=== PATIENT | female | born 1965 | race African-American/Black ===

== ENCOUNTER 2022-03-02 08:24 | Emergency (ER) | payer MEDICAID, SELFPAY ==
--- NOTE | ~2022-03-02 | CT_ITS ---
EXAMINATION: CT ABDOMEN AND PELVIS WITHOUT CONTRAST CLINICAL INFORMATION: Right flank pain COMPARISON: No previous exam available TECHNIQUE: Multidetector volumetric imaging was performed from the superior aspect of the liver through the pubic symphysis. Sagittal and coronal reformatted images were obtained on the technologist's workstation. This CT examination was performed using dose optimization techniques as appropriate, variously including the following: *Automated exposure control *Adjustment of mA and/or kV according to patient size (this includes techniques or standardized protocols for targeted exams where dose is matched to indication/reason for exam; i.e. extremities or head) *Use of iterative reconstruction technique DLP: 649 mGy-cm FINDINGS: LUNG BASES: There is bibasilar atelectasis. LIVER, GALLBLADDER, AND BILIARY TREE: The liver is normal in size, shape, and attenuation. No focal hepatic lesion or biliary ductal dilatation is present. There is a focal calcification along the right hepatic dome. There are multiple radiopaque gallstones without wall thickening. PANCREAS: Unremarkable. SPLEEN: Unremarkable. ADRENAL GLANDS: Unremarkable. KIDNEYS AND URETERS: The kidneys are normal in size, shape, and attenuation. No hydronephrosis, hydroureter, or calculi seen. No perinephric stranding. BLADDER: Unremarkable. GASTROINTESTINAL TRACT: There is scattered stool and gas seen throughout the colon without distention. The small bowel loops are normal caliber. Appendix is not visualized. The stomach is nondistended ABDOMINAL WALL: No significant hernia is appreciated. LYMPH NODES: Normal. VASCULAR: Unremarkable. PELVIC VISCERA: The uterus is anteverted and appears unremarkable. No free fluid or free air seen. No adnexal mass. OSSEOUS STRUCTURES: No lytic or sclerotic process seen. There is mild degenerative facet joint disease L5-S1 disc level. CT/CT abdomen pelvis wo IV con IMPRESSION: 1. Cholelithiasis without wall thickening. There is small stone in the neck of bladder but no wall thickening. 2. Mild constipation. 3. No radiopaque urolith or hydroureteronephrosis. Fleischner guidelines were followed.
[2022-03-02 08:26] VITALS: BP 153/90; PULSE 75; RESP 18; TEMP 36.7; O2SAT 100; BMI 25.1
[2022-03-02 08:47] VITALS: BP 139/87; PULSE 63; RESP 15; O2SAT 99
--- NOTE | 2022-03-02 09:05 | ED.GENADULT ---
HPI - General Adult General Chief complaint: General Medical Stated complaint: back pain Time Seen by Provider: 03/02/22 09:04 Source: patient Mode of arrival: ambulatory Limitations: no limitations History of Present Illness HPI narrative: 56-year-old female with a history of hypertension noncompliant with her medication who presents with right flank pain for the last 3 days intermittent more severe today with urinary frequency. No dysuria, hematuria, nausea, vomiting, fevers. No injury or trauma Related Data Allergies Allergy/AdvReac Type Severity Reaction Status Date / Time No Known Allergies Allergy Verified 03/02/22 09:12 Review of Systems Review of Systems: Yes all other systems are reviewed and are negative Constitutional: Constitutional: Reports no additional constitutional complaints, Denies body ache(s), Denies chills, Denies fever(s), Denies headache(s) and Denies weakness Eyes: Eyes: Reports no additional eye complaints and Denies change in vision ENT: Reports system reviewed and no additional complaints, except as documented, Denies dizziness, Denies headache(s), Denies nasal congestion, Denies nasal discharge and Denies neck pain Cardiovascular: Cardiovascular: Reports no additional cardiovascular complaints, Denies chest pain, Denies leg edema and Denies dyspnea Respiratory: Respiratory: Reports no additional respiratory complaints, Denies cough and Denies dyspnea Gastrointestinal: Gastrointestinal: Reports no additional gastrointestinal complaints, Denies abdominal pain, Denies diarrhea, Denies nausea and Denies vomiting Genitourinary: Genitourinary: Reports no additional female genitourinary complaints and Denies urinary incontinence Musculoskeletal: Musculoskeletal: Reports no additional musculoskeletal complaints, Reports back pain, Denies arthralgias, Denies joint swelling, Denies neck pain, Denies numbness and Denies tingling Integumentary/Breasts: Skin/Breast: Reports system reviewed and no additional complaints, except as docu and Denies rash Neurologic: Reports system reviewed and no additional complaints, except as documented, Denies dizziness, Denies headache(s), Denies numbness, Denies tingling and Denies weakness PMFSH Past Medical History Attestation statement: The following information was validated with the patient. Source: old records reviewed and nursing notes reviewed Social History Social History Use of substances other than those prescribed or required for medical reasons: No Advance Directives: No Physical Exam ED Vital Signs: Vital Signs - 24 hr 03/02/22 08:26 03/02/22 08:47 03/02/22 10:47 Temperature 98.0 F Pulse Rate 75 63 55 Respiratory Rate 18 15 15 Blood Pressure 153/90 H 139/87 147/86 H Pulse Oximetry 100 99 96 Oxygen Delivery Method Room Air Room Air Room Air BMI result Body Mass Index 25.1 Const General: cooperative, healthy appearing, comfortable and no acute distress Orientation/consciousness: patient oriented x3 Limitations: no limitations HENMT Head: Yes normal to inspection Ears: hearing grossly normal bilaterally Eyes General: appearance normal, both eyes and all related structures Pupils: Equal, round and reactive pupils present Neck Neck: Yes normal visual inspection, Yes full ROM and Yes no lymphadenopathy Chest Chest palpation & inspection: normal inspection of the chest Resp Effort & Inspection: normal respiratory effort Auscultation: clear to auscultation bilaterally Cardio Rate: regular rate Rhythm: regular rhythm Peripheral pulses: Peripheral pulses 2+ throughout GI Inspection: Yes normal to inspection Palpation (GI): Soft to palpation and nontender Other: Tenderness to the right soft tissue of the thoracic and lumbar spine with no midline tenderness, step-offs deformities General: Yes CVA tenderness on the right Back/Spine/Pelvis Back: CVA tenderness Thoracic/Lumbar Spine: thoracic and lumbar spine normal to inspection Skin General skin exam: no rashes or lesions noted Neuro General: patient oriented x3 and moves all extremities Cranial nerves: Yes Equal, round and reactive pupils present Cognition (Neuro): normal cognition Gait exam (Neuro): Normal gait present Extrem General: Yes normal to inspection, Yes no pedal edema and Yes no calf tenderness Course Course Course Narrative: CT shows gallstones with a stone in the neck of the gallbladder. Labs including LFTs are normal. Pain is well controlled after receiving Toradol IM. No vomiting. Patient was informed of the results. We recommended following a low-fat diet. She would like to follow-up outpatient with surgery. Reviewed worrisome signs and symptoms of when to return to the emergency room. Comfortable plan for discharge home. Medications Administered Discontinued Medications Generic Name Dose Route Start Last Admin Trade Name Freq PRN Reason Stop Dose Admin Ketorolac Tromethamine 30 mg 03/02/22 09:12 03/02/22 09:58 Ketorolac Tromethamine 30 Mg/Ml Vial IM 03/02/22 09:13 Not Given ONCE ONE Medical Decision Making Medical Decision Making [facility] Narrative: 56-year-old female here with right flank pain and urinary frequency for 3 days With obtain labs, UA, CT, provide analgesia Differential Diagnosis Differential Diagnoses: The differential diagnosis associated with the presentation includes Lumbar strain, renal colic, pyelonephritis, cholecystitis Consult Healthcare Provider Management of the patient was discussed with: [employer] (radiologist-dr leslie) Initial read of CT scan showed gallstones without wall thickening and concern for stone in the neck of the bladder but no wall thickening. I did call and speak to him. I confirmed that he meant there was a small stone in the neck of the gallbladder with no wall thickening Lab Data [facility] Lab Attestation statement: I reviewed the patient's lab results. 03/02/22 09:54 03/02/22 09:54 Labs: Lab Results 03/02/22 03/02/22 03/02/22 Range/Units 09:54 09:54 10:04 WBC 9.7 (4.8-10.8) X10*3/uL RBC 4.05 L (4.20-5.50) X10*6/uL Hgb 12.5 (12.0-16.0) g/dl Hct 38.1 (37.0-47.0) % MCV 94.1 (80.0-98.0) fL MCH 30.9 (27.0-33.0) pg MCHC 32.8 (31.0-35.0) g/dl RDW 14.6 (11.0-16.0) % Plt Count 168 (160-400) X10*3/uL MPV 12.3 (9.4-12.3) fL Immature Gran % (Auto) Cancelled Neut % (Auto) Cancelled Lymph % (Auto) Cancelled Kemper % (Auto) Cancelled Eos % (Auto) Cancelled Baso % (Auto) Cancelled Lymph # (Auto) Cancelled Kemper # (Auto) Cancelled Eos # (Auto) Cancelled Baso # (Auto) Cancelled Abs Immat Gran (auto) Cancelled Absolute Neuts (auto) Cancelled Absolute Nucleated RBC 0.000 (0.0-0.012) X10*3/uL Nucleated RBC % (auto) 0.0 (0.0-0.2) /100WBC Neutrophils % (Manual) 56 (45-73) % Band Neutrophils % 0 L (3-5) % Lymphocytes % (Manual) 33 (20-40) % Monocytes % (Manual) 7 (2-11) % Eosinophils % (Manual) 1 (0-4) % Basophils % (Manual) 3 H (0-2) % Abs Neuts (Manual) 5.4 (2.0-8.3) X10*3/uL Lymphocytes # (Manual) 3.2 (1.2-4.9) X10*3/uL Monocytes # (Manual) 0.7 (0.1-1.2) X10*3/uL Eosinophils # (Manual) 0.1 (0.0-0.4) X10*3/uL Basophils # (Manual) 0.3 H (0.0-0.2) X10*3/uL Platelet Estimate NORMAL (NORMAL) Plt Morphology Comment NORMAL RBC Morphology NORMAL Sodium 139 (135-145) mmol/L Potassium 3.9 (3.3-5.1) mmol/L Chloride 111 H (96-108) mmol/L Carbon Dioxide 22 (22-29) mmol/L Anion Gap 10 L (12-20) BUN 19 H (9-16) mg/dL Creatinine 0.82 (0.5-1.4) mg/dL Estim Creat Clear Calc 80.0 Estimated GFR > 60 Random Glucose 84 (60-115) mg/dL Calcium 8.6 (8.4-10.2) mg/dL Total Bilirubin 0.3 (0.0-1.0) mg/dL Direct Bilirubin < 0.2 (0.0-0.5) mg/dL AST 13 (5-31) U/L ALT 8 (0-31) U/L Alkaline Phosphatase 48 (39-117) U/L Total Protein 6.0 L (6.5-8.0) g/dL Albumin 3.8 (3.5-5.0) g/dL Urine Color Yellow Urine Appearance Clear Urine pH 5.5 (5.0-9.0) Ur Specific Blair 1.015 (1.005-1.025) Urine Protein Negative (Neg-Trace) mg/dL Urine Glucose (UA) Negative (Negative) mg/dL Urine Ketones Negative (Negative) mg/dL Urine Blood Negative (Negative) Urine Nitrite Negative (Negative) Ur Leukocyte Esterase Negative (Negative) Independent Interpretation I performed an independent interpretation of an: CT Scan (Independently reviewed which shows gallstones without wall thickening with a small stone in the neck of the bladder) Radiology Impression Discussion of test interpretation with radiology: I have reviewed the radiologist's reading. Radiologist Impression: FINDINGS: LUNG BASES: There is bibasilar atelectasis.? LIVER, GALLBLADDER, AND BILIARY TREE: The liver is normal in size, shape, and attenuation. No focal hepatic lesion or biliary ductal dilatation is present. There is a focal calcification along the right hepatic dome. There are multiple radiopaque gallstones without wall thickening.? PANCREAS: Unremarkable.? SPLEEN: Unremarkable.? ADRENAL GLANDS: Unremarkable.? KIDNEYS AND URETERS: The kidneys are normal in size, shape, and attenuation. No hydronephrosis, hydroureter, or calculi seen. No perinephric stranding. ? BLADDER: Unremarkable.? GASTROINTESTINAL TRACT: There is scattered stool and gas seen throughout the colon without distention. The small bowel loops are normal caliber. Appendix is not visualized. The stomach is nondistended ABDOMINAL WALL: No significant hernia is appreciated.? LYMPH NODES: Normal. VASCULAR: Unremarkable. PELVIC VISCERA: The uterus is anteverted and appears unremarkable. No free fluid or free air seen. No adnexal mass.? OSSEOUS STRUCTURES: No lytic or sclerotic process seen. There is mild degenerative facet joint disease L5-S1 disc level. CT/CT abdomen pelvis wo IV con IMPRESSION: 1.? Cholelithiasis without wall thickening. There is small stone in the neck of bladder but no wall thickening. 2.? Mild constipation. 3. ? No radiopaque urolith or hydroureteronephrosis. ? Discharge Plan Discharge Clinical Impression: Cholelithiases Patient Disposition: Home, Self-Care Instructions: Gallstones (ED) Additional Instructions: Your urine and lab work are normal. Your CT scan shows gallstones within your gallbladder. Low-fat diet Follow-up with General surgery Return for severe pain, vomiting, fever Referrals: Naun Hwang MD [Physician] - 1 week Stand Alone Forms: Work/School Release Interventions: ED Discharge Assessment Last Done: 03/02/22 10:54 Discharge Date/Time: 03/02/22 10:54
[2022-03-02 10:01] LABS: Hematocrit 38.1 % (37.0-47.0); Hemoglobin 12.5 g/dl (12.0-16.0); Mean Corpuscular HGB Conc 32.8 g/dl (31.0-35.0); Mean Corpuscular Hemoglobin 30.9 pg (27.0-33.0); Mean Corpuscular Volume 94.1 fL (80.0-98.0); Mean Platelet Volume 12.3 fL (9.4-12.3); Platelet Count 168 X10*3/uL (160-400); Red Blood Count 4.05 X10*6/uL (4.20-5.50); Red Cell Distribution Width 14.6 % (11.0-16.0)
--- NOTE | 2022-03-02 10:03 | PC.NURSE ---
PT REPORTS R FLANK PAIN X3 DAYS THAT HAS GOTTEN INCREASINGLY WORST. HX OF HTN AND IS NONCOMPLIANT WITH MEDS. DENIES N/V/D. ADMITS TO URINARY FREQUENCY. PT REFUSED IM PAIN MED STATES I DON'T THINK I NEED IT .
[2022-03-02 10:05] LABS: WBC ABN SCTR FOR CBC 1; White Blood Count 9.7 X10*3/uL (4.8-10.8)
[2022-03-02 10:19] LABS: Band Neutrophils Percent 0 % (3-5); Basophils Abs Manual 0.3 X10*3/uL (0.0-0.2); Basophils Percent Manual 3 % (0-2); Eosinophils Absolute Manual 0.1 X10*3/uL (0.0-0.4); Eosinophils Percent Manual 1 % (0-4); Lymphocytes Absolute Manual 3.2 X10*3/uL (1.2-4.9); Lymphocytes Percent Manual 33 % (20-40); Monocytes Absolute Manual 0.7 X10*3/uL (0.1-1.2); Monocytes Percent Manual 7 % (2-11); Neutrophils Absolute Manual 5.4 X10*3/uL (2.0-8.3); Neutrophils Percent Manual 56 % (45-73)
[2022-03-02 10:20] LABS: Platelet Estimate NORMAL (NORMAL); Platelet Morphology Comment NORMAL; RBC Morphology NORMAL
[2022-03-02 10:20] LABS: Appearance Urine Clear; Color Urine Yellow; Glucose Urine UA Negative (Negative); Leukocyte Esterase Urine Negative (Negative); Nitrite Urine Negative (Negative); PH 5.5 (5.0-9.0); Specific Gravity - Urine 1.015 (1.005-1.025); Urine Blood Negative (Negative); Urine Ketones Negative (Negative); Urine Protein Negative (Neg-Trace)
[2022-03-02 10:33] LABS: Alanine Aminotransferase 8 U/L (0-31); Albumin Level 3.8 g/dL (3.5-5.0); Alkaline Phosphatase 48 U/L (39-117); Anion Gap 10 (12-20); Aspartate Amino Transferase 13 U/L (5-31); Bilirubin Direct < 0.2 mg/dL (0.0-0.5); Bilirubin Total 0.3 mg/dL (0.0-1.0); Blood Urea Nitrogen 19 mg/dL (9-16); Calcium 8.6 mg/dL (8.4-10.2); Carbon Dioxide 22 mmol/L (22-29); Chloride 111 mmol/L (96-108); Estimated Glomerular Filt Rate > 60; Glucose Random 84 mg/dL (60-115); Potassium 3.9 mmol/L (3.3-5.1); Sodium 139 mmol/L (135-145)
[2022-03-02 10:47] VITALS: BP 147/86; PULSE 55; RESP 15; O2SAT 96
== END 2022-03-02 10:54 | disposition home or self-care (01) ==
PROVIDERS: Nurse Practitioner Family; Emergency Provider Emergency Medicine
DX: M54.50 Low back pain, unspecified (principal); R10.9 Unspecified abdominal pain; Z91.14 Patient's other noncompliance with medication regimen; Z79.899 Other long term (current) drug therapy
CPT/HCPCS: 36415; 74176; 80048; 80076; 81003; 85007; 85025; 85027; 96372; 99284

== ENCOUNTER → 2022-04-22 13:59 | Outpatient (BNVA) | payer MEDICAID, SELFPAY | PROVIDERS: PCP Nurse Practitioner Family; Visit Provider Surgery | DX: K80.20 Calculus of gallbladder without cholecystitis without obstruction (principal); M54.9 Dorsalgia, unspecified; F17.210 Nicotine dependence, cigarettes, uncomplicated; Z78.9 Other specified health status | CPT/HCPCS: 99202 ==

== ENCOUNTER 2022-05-20 08:12 | Outpatient (REF) | payer OTHER, SELFPAY ==
--- NOTE | ~2022-05-20 | US_ITS ---
EXAMINATION: US ABDOMEN LIMITED CLINICAL INFORMATION: Right upper quadrant pain. COMPARISON: CT abdomen and pelvis 03/02/2022. TECHNIQUE: Real-time imaging of the right upper quadrant abdominal viscera. FINDINGS: PANCREAS: No abnormal mass or peripancreatic inflammatory changes seen. No pancreatic ductal dilatation. There are calculi within the common bile duct adjacent to the pancreatic duct at the head of the pancreas. LIVER: Normal. The liver is normal in size. The liver contour is normal. Parenchymal echogenicity is normal. No focal hepatic lesion. There is no intrahepatic biliary duct dilatation seen. GALLBLADDER: Multiple calculi are present with what appears to be impacted calculi in the neck. The gallbladder wall is not thickened and no pericholecystic fluid is seen. Adenomyomatosis is present. There is no tenderness to palpation overlying the gallbladder. COMMON BILE DUCT: Enlarged in caliber measuring 0.9 cm in diameter. Choledocholithiasis is present with a 1.4 x 0.8 x 1.0 cm calculus present. RIGHT KIDNEY: Normal. No hydronephrosis. No renal calculi or focal parenchymal lesions. The kidney measures 11.0 cm in maximum dimension. FREE FLUID: None. US/US abdomen limited IMPRESSION: Cholelithiasis without definite evidence of acute cholecystitis, however, there appears to be an impacted calculus in the neck. Choledocholithiasis. Common bile duct measures 9 mm in diameter.
== END 2022-05-20 08:13 | disposition home or self-care (01) ==
LOC: HO.HMGCX 08:12
PROVIDERS: PCP Nurse Practitioner Family; Visit Provider Surgery
DX: R10.11 Right upper quadrant pain (principal)
CPT/HCPCS: 76705

== ENCOUNTER → 2022-05-27 14:00 | Outpatient (BNVA) | payer OTHER, SELFPAY | PROVIDERS: PCP Nurse Practitioner Family; Visit Provider Surgery | DX: K80.50 Calculus of bile duct without cholangitis or cholecystitis without obstruction (principal); K80.20 Calculus of gallbladder without cholecystitis without obstruction; F17.210 Nicotine dependence, cigarettes, uncomplicated; Z78.9 Other specified health status ==

== ENCOUNTER 2022-06-09 07:21 | Outpatient (REF) | payer OTHER, SELFPAY | END 2022-06-09 07:22 | disposition home or self-care (01) | LOC: HO.MRI 07:21 | PROVIDERS: PCP Nurse Practitioner Family; Visit Provider Surgery | DX: Z13.89 Encounter for screening for other disorder (principal) ==

== ENCOUNTER 2022-06-10 09:39 | Emergency (ER) | payer OTHER, SELFPAY ==
[2022-06-10 09:45] VITALS: BP 140/91; PULSE 66; RESP 17; TEMP 36.2; O2SAT 99; BMI 24.3
[2022-06-10 10:21] LABS: MANUAL DIFF FLAG NO
[2022-06-10 10:23] LABS: Basophils Absolute Auto 0.1 X10*3/uL (0.0-0.2); Basophils Percent Auto 0.8 % (0-2); Eosinophils Absolute Auto 0.2 X10*3/uL (0.0-0.4); Eosinophils Percent Auto 2.1 % (0-4); Hemoglobin 12.5 g/dl (12.0-16.0); Imm Gran Abs Auto 0.02 X10*3/uL (0.00-0.03); Imm Gran Pct Auto 0.2 % (0.0-0.4); Lymphocytes Absolute Auto 2.3 X10*3/uL (1.2-4.9); Lymphocytes Percent Auto 25.2 % (20-40); Mean Corpuscular HGB Conc 32.9 g/dl (31.0-35.0); Mean Corpuscular Hemoglobin 31.5 pg (27.0-33.0); Mean Corpuscular Volume 95.7 fL (80.0-98.0); Mean Platelet Volume 12.6 fL (9.4-12.3); Monocytes Absolute Auto 0.7 X10*3/uL (0.1-1.2); Monocytes Percent Auto 7.8 % (2-11); Neutrophils Absolute Auto 5.9 x10*3/uL (2.0-8.3); Neutrophils Percent Auto 63.9 % (45-73); Platelet Count 145 X10*3/uL (160-400); Red Blood Count 3.97 X10*6/uL (4.20-5.50); Red Cell Distribution Width 14.6 % (11.0-16.0); White Blood Count 9.2 X10*3/uL (4.8-10.8)
[2022-06-10 10:25] LABS: Appearance Urine Clear; Color Urine Yellow; Glucose Urine UA Negative (Negative); Leukocyte Esterase Urine Negative (Negative); Nitrite Urine Negative (Negative); PH 5.5 (5.0-9.0); Specific Gravity - Urine 1.025 (1.005-1.025); Urine Blood Negative (Negative); Urine Ketones Negative (Negative); Urine Protein Negative (Neg-Trace)
--- NOTE | 2022-06-10 11:07 | ED_ITS ---
HPI - General Adult General Chief complaint: Abdominal Pain Stated complaint: Abd pain/Back pain Time Seen by Provider: 06/10/22 11:06 Source: patient Mode of arrival: ambulatory Limitations: no limitations History of Present Illness HPI narrative: Patient is a 57 year old assigned female at with a history of alcohol use and cholelithiasis presenting to the emergency department today with back and abdominal pain. Patient states that she has been having intermittent back pain and abdominal pain. Patient states that she has had imaging done recently that showed gallstones. Patient states that she was supposed to get an MRI yesterday to further evaluate these but she did not go to the appointment because she doesn't want to go inside the MRI tube. Patient states that she is following with a general surgeon here for this. Patient denies any dizziness, lightheadedness, nausea, vomiting, fever, chills, blurry vision, double vision, loss of vision, chest pain, difficulty breathing, shortness of breath, night sweats, pain with urination, increased urinary frequency, increased urinary urgency, blood in her urine or stool, syncope or a near syncopal episode, recent trauma or falls, bowel incontinence, bladder incontinence, bowel retention, bladder retention, or any other complaints at this time. Onset (ago): day(s) Location: back and abdomen Severity: mild Severity scale (1-10): 3 Relieving factors: none Exacerbating factors: none Treatments prior to arrival: none Related Data Home Medications Medication Instructions Recorded Confirmed No Known Home Meds 05/27/22 05/27/22 Allergies Allergy/AdvReac Type Severity Reaction Status Date / Time No Known Allergies Allergy Verified 04/22/22 14:05 Review of Systems Constitutional: Constitutional: Reports no additional constitutional complaints, Denies chills, Denies fever(s) and Denies night sweats Eyes: Eyes: Reports no additional eye complaints, Denies blurry vision, Denies change in vision, Denies diplopia, Denies eye discharge, Denies loss of vision and Denies eye pain ENT: Denies dizziness Cardiovascular: Cardiovascular: Reports no additional cardiovascular complaints, Denies chest pain, Denies lightheadedness, Denies Loss of C onsciousness and Denies dyspnea Respiratory: Respiratory: Reports no additional respiratory complaints and Denies dyspnea Gastrointestinal: Gastrointestinal: Reports no additional gastrointestinal complaints, Reports abdominal pain, Denies melena, Denies hematochezia, Denies change in bowel habits and Denies change in stool character Genitourinary: Genitourinary: Denies hematuria, Denies urinary frequency, Denies dysuria, Denies urinary incontinence, Denies urinary hesitancy and Denies urinary urgency Musculoskeletal: Musculoskeletal: Reports no additional musculoskeletal compl aints, Reports back pain, Denies numbness and Denies tingling Neurologic: Denies dizziness, Denies loss of vision, Denies numbness and Denies tingling Psychiatric: Psychiatric: Reports no additional psychiatric complaints Endocrine: Endocrine: Reports no additional endocrine complaints Hematologic/Lymphatic: Hematologic/Lymphatic: Reports no additional hematologic/lymphatic complaints Allergic/Immunologic: Allergic/Immunologic: Reports no additional allergic/immunologic complaints [facility] Past Medical History Attestation statement: The following information was validated with the patient. Source: old records reviewed and nursing notes reviewed Social History Social History Alcohol intake: current Alcohol intake frequency: 0-2 drinks per day Alcohol type: beer Patient Tobacco Use Status: Current everyday Tobacco user Cigarette Packs Per Day: 1 Advance Directives: No Advance Directives Information Provided: Yes Patient : No Physical Exam ED Vital Signs: Vital Signs - 24 hr 06/10/22 09:45 06/10/22 11:57 Temperature 97.1 F Pulse Rate 66 66 Respiratory Rate 17 16 Blood Pressure 140/91 H 149/82 H Pulse Oximetry 99 97 Oxygen Delivery Method Room Air Room Air BMI result Body Mass Index 24.3 Const General: cooperative, no acute distress, alert and awake Nutritional Appearance: well nourished Orientation/consciousness: patient oriented x3 Limitations: no limitations [facility] Head: Yes normal to inspection and Yes atraumatic Ears: hearing grossly normal bilaterally and external ears normal General nose exam: Normal external nose present, no nasal discharge noted and no epistaxis Face and sinus: Yes normal facial exam, No abrasion and No laceration Mouth: Normal oral and palatal mucosa present, no drooling and no muffled voice Eyes General: appearance normal, both eyes and all related structures Periorbital: periorbital findings normal Eyelids: Yes eyelids normal Conjunctivae: conjunctivae normal Pupils: Equal, round and reactive pupils present EOM: EOMs intact bilaterally Neck Neck: Yes normal visual inspection, Yes full ROM and Yes no lymphadenopathy Chest Chest palpation & inspection: normal inspection of the chest Resp Effort & Inspection: normal respiratory effort and able to speak in complete sentences GI Inspection: Yes normal to inspection Palpation (GI): Soft to palpation, not firm, nontender, no guarding and not rigid General: Yes no CVA tenderness Back/Spine/Pelvis Back: no CVA tenderness Cervical Spine: normal cervical lordosis and cervical ROM normal Thoracic/Lumbar Spine: thoraco-lumbar ROM normal Neuro General: patient oriented x3 and moves all extremities Cranial nerves: Yes Equal, round and reactive pupils present Cognition (Neuro): normal cognition Motor exam (neuro): 5/5 motor strength present throughout Sensory Exam: Normal double simultaneous stimulation for sensation Coordination: [id number] test normal Extrem General: Yes normal to inspection, Yes full ROM and Yes capillary refill normal Psych Appearance: grossly normal Mental Status: mental status grossly normal Affect: normal affect Attitude: cooperative Thought process: Normal thought process present Thought content: Normal thought content present Insight: Good insight present (Psych) Medical Decision Making Medical Decision Making [facility] Narrative: Patient is a 57 year old assigned female at with a history of alcohol use and chlelithiasis presenting to the emergency department today with back and abdominal pain. Patient's physical exam was unremarkable. Patient's blood work was unremarkable. Patient's urine showed no acute process. I explained my physical exam findings as well as all test results to the patient. I answered all questions asked by the patient. I stressed the importance of the patient taking her medication as prescribed. I stressed the importance of the patient following up with her primary care provider and your general surgeon. I stressed the importance of the patient returning to the emergency department immediately if her symptoms were to worsen or if she were to develop any dizziness, shortness of breath, difficulty breathing, chest pain, blurry vision, loss of vision, nausea, vomiting, abdominal pain, fever, chills, back pain, or any other complaints. Patient verbalized agreement and understanding with this treatment plan and discharge. Differential Diagnosis Differential Diagnoses: The differential diagnosis associated with the presentation includes abdominal pain, back pain, cholelithiasis Lab Data [facility] Lab Attestation statement: I reviewed the patient's lab results. 06/10/22 10:17 06/10/22 10:17 Labs: Lab Results 06/10/22 06/10/22 06/10/22 Range/Units 10:03 10:17 10:17 WBC 9.2 (4.8-10.8) X10*3/uL RBC 3.97 L (4.20-5.50) X10*6/uL Hgb 12.5 (12.0-16.0) g/dl Hct 38.0 (37.0-47.0) % MCV 95.7 (80.0-98.0) fL MCH 31.5 (27.0-33.0) pg MCHC 32.9 (31.0-35.0) g/dl RDW 14.6 (11.0-16.0) % Plt Count 145 L (160-400) X10*3/uL MPV 12.6 H (9.4-12.3) fL Immature Gran % (Auto) 0.2 (0.0-0.4) % Neut % (Auto) 63.9 (45-73) % Lymph % (Auto) 25.2 (20-40) % [place] % (Auto) 7.8 (2-11) % Eos % (Auto) 2.1 (0-4) % Baso % (Auto) 0.8 (0-2) % Lymph # (Auto) 2.3 (1.2-4.9) X10*3/uL [place] # (Auto) 0.7 (0.1-1.2) X10*3/uL Eos # (Auto) 0.2 (0.0-0.4) X10*3/uL Baso # (Auto) 0.1 (0.0-0.2) X10*3/uL Abs Immat Gran (auto) 0.02 (0.00-0.03) X10*3/uL Absolute Neuts (auto) 5.9 (2.0-8.3) x10*3/uL Absolute Nucleated RBC 0.000 (0.0-0.012) X10*3/uL Nucleated RBC % (auto) 0.0 (0.0-0.2) /100WBC Sodium 140 (135-145) mmol/L Potassium 4.6 (3.3-5.1) mmol/L Chloride 109 H (96-108) mmol/L Carbon Dioxide 21 L (22-29) mmol/L Anion Gap 15 (12-20) BUN 15 (9-16) mg/dL Creatinine 0.76 (0.5-1.4) mg/dL Estim Creat Clear Calc 85.3 Estimated GFR > 60 Random Glucose 91 (60-115) mg/dL Calcium 8.8 (8.4-10.2) mg/dL Total Bilirubin 0.3 (0.0-1.0) mg/dL Direct Bilirubin 0.1 (0.0-0.5) mg/dL AST 18 (5-31) U/L ALT 11 (0-31) U/L Alkaline Phosphatase 53 (39-117) U/L Total Protein 6.6 (6.5-8.0) g/dL Albumin 4.1 (3.5-5.0) g/dL Lipase 21 (8-78) U/L Urine Color Yellow Urine Appearance Clear Urine pH 5.5 (5.0-9.0) Ur Specific [place] 1.025 (1.005-1.025) Urine Protein Negative (Neg-Trace) mg/dL Urine Glucose (UA) Negative (Negative) mg/dL Urine Ketones Negative (Negative) mg/dL Urine Blood Negative (Negative) Urine Nitrite Negative (Negative) Ur Leukocyte Esterase Negative (Negative) Discharge Plan Discharge Clinical Impression: Cholelithiasis Patient Disposition: Home, Self-Care Instructions: Gallstones (ED) Additional Instructions: Follow up with your primary care provider and your general surgeon. Return to the emergency department immediately if your symptoms worsen or if you develop any dizziness, shortness of breath, difficulty breathing, chest pain, blurry vision, loss of vision, nausea, vomiting, abdominal pain, fever, chills, back pain, or any other complaints. Prescriptions: No Action No Known Home Meds Referrals: [facility] [place] [facility] General Surgeons [Provider Group] (Follow up with your general surgeon. ) Clarissa Ruby CNP [Primary Care Provider] - Interventions: ED Discharge Assessment Last Done: 06/10/22 13:39 Discharge Date/Time: 06/10/22 13:40 Print Language: Grenadian
[2022-06-10 11:57] VITALS: BP 149/82; PULSE 66; RESP 16; O2SAT 97
--- NOTE | 2022-06-10 12:05 | PC.NURSE ---
PT ON STRETCHER, STATES SHE HAS NO PAIN AT THIS TIME. AWAITING RESULTS
[2022-06-10 12:52] LABS: Alanine Aminotransferase 11 U/L (0-31); Albumin Level 4.1 g/dL (3.5-5.0); Alkaline Phosphatase 53 U/L (39-117); Anion Gap 15 (12-20); Aspartate Amino Transferase 18 U/L (5-31); Bilirubin Direct 0.1 mg/dL (0.0-0.5); Bilirubin Total 0.3 mg/dL (0.0-1.0); Blood Urea Nitrogen 15 mg/dL (9-16); Calcium 8.8 mg/dL (8.4-10.2); Carbon Dioxide 21 mmol/L (22-29); Chloride 109 mmol/L (96-108); Creatinine Clr Calc Pharmacy 85.3; Estimated Glomerular Filt Rate > 60; Glucose Random 91 mg/dL (60-115); Lipase 21 U/L (8-78); Potassium 4.6 mmol/L (3.3-5.1); Sodium 140 mmol/L (135-145); Total Protein 6.6 g/dL (6.5-8.0)
--- NOTE | 2022-06-10 13:37 | PC.NURSE ---
pt was not in room/digital imaging specialist was cleaning room- provider was notified who stated she was discharging the patient, it was determined the patient left without her discharge paperwork.
== END 2022-06-10 13:40 | disposition home or self-care (01) ==
PROVIDERS: Emergency Provider Student in an Organized Health Care Education/Training Program; PCP Nurse Practitioner Family
DX: K80.20 Calculus of gallbladder without cholecystitis without obstruction (principal); M54.50 Low back pain, unspecified; F17.210 Nicotine dependence, cigarettes, uncomplicated; Z71.6 Tobacco abuse counseling; Z79.899 Other long term (current) drug therapy
CPT/HCPCS: 36415; 80048; 80076; 81003; 83690; 85025; 99284

== ENCOUNTER 2022-10-16 08:07 | Emergency (ER) | payer OTHER, SELFPAY ==
[2022-10-16 08:11] VITALS: BP 158/70; BP 162/80; PULSE 56; PULSE 80; RESP 16; TEMP 36.6; O2SAT 100; O2SAT 98; BMI 28.0
--- NOTE | 2022-10-16 08:16 | PC.NURSE ---
Addendum entered by Zack White 10/16/22 08:37: sinus keeley on monitor 55 bpm. Original Note: pt axox4, arrived via ems states lightheaded/BAHENA onset 299; resolved now. VSS. respirations even and unlabored. neuros intact, PERRLA. pt admits to daily drinking, last drink 1999, denies hx withdrawal sx. NSR on monitor 55 bpm. awaiting primary eval by ed provider; call vang within reach.
--- NOTE | 2022-10-16 08:32 | ECG_ITS ---
Test Reason : dizziness Blood Pressure : / mmHG Vent. Rate : 046 BPM Atrial Rate : 046 BPM P-R Int : 172 ms QRS Dur : 078 ms QT Int : 464 ms P-R-T Axes : 064 052 055 degrees QTc Int : 406 ms Sinus bradycardia Otherwise normal ECG No previous ECGs available Referred By: Valarie Cardona Electronically Signed By:DONTRELL VILLEDA
--- NOTE | 2022-10-16 08:35 | ED.HA ---
HPI - Headache General Chief Complaint: Headache Stated Complaint: WOKE UP W/BAHENA AND LIGHTHEADED PER EMS Time Seen by Provider: 10/16/22 08:25 Source: patient and EMS Mode of arrival: EMS Limitations: no limitations History of Present Illness HPI Narrative: 57 yo female with history of HTN (noncompliant with meds), etoh use, smoker who presents to the ER via EMS from work for evaluation of headache, lightheadedness and elevated BP that started this morning. She states she woke up this morning with a weird frontal headache. She cannot explain it. It is not severe, it does not radiate into the neck. She was dry heaving this morning. She went to work where she developed some lightheadedness. They checked her BP and it was 155/100. Her HR was in the 50s. She does not know her baseline BP and HR. She has not been taking her prescribed lisinopril because her stress has been down and she didn't think she needed it. She denies any chest pain, abdominal pain, SOB, myalgias, fever, chills, diarrhea, weakness. No known sick contacts. MD elicited complaint: headache Pertinent past history: hypertension Onset (ago): hour(s) Onset description: gradually Location: frontal Severity: moderate Quality & Timing: aching Exacerbating factors: none Relieving factors: nothing Associated symptoms: nausea and lightheadedness Treatments prior to arrival: none Related Data Home Medications Medication Instructions Recorded Confirmed No Known Home Meds 05/27/22 05/27/22 Allergies Allergy/AdvReac Type Severity Reaction Status Date / Time No Known Allergies Allergy Verified 04/22/22 14:05 Review of Systems Review of Systems: Yes all other systems are reviewed and are negative [facility] Social History Social History Alcohol intake: current Alcohol intake frequency: 3 or more drinks per day Alcohol type: beer Patient Tobacco Use Status: Current everyday Tobacco user Cigarette Packs Per Day: 1 Smoked in Last 30 Days: Yes Use of substances other than those prescribed or required for medical reasons: Yes Substance Use Type: Marijuana Substance Use Frequency: Occasionally Advance Directives: No Advance Directives Information Provided: No Physical Exam Vital Signs: Vital Signs: Last Vital Signs Temp 97.8 F 10/16/22 08:11 Pulse 57 10/16/22 09:03 Resp 16 08/31/23 08:11 BP 152/59 H 10/16/22 09:03 Pulse Ox 100 10/16/22 08:11 O2 Del Method Room Air 10/16/22 08:11 BMI result Body Mass Index 28.0 Appearance: Alert. Oriented X3. No acute distress. Head: normocephalic, atraumatic. Eyes: Pupils equal, round and reactive to light. ENT: Pharynx normal. No tonsillar swelling or exudate. Neck: Normal inspection. Neck supple. CVS: Normal heart rate and rhythm. Pulses normal. Respiratory: No respiratory distress. Breath sounds normal. Abdomen: Soft and nontender. +BS x4 Skin: Skin warm and dry. Normal skin color. Normal skin turgor. No rashes. Extremities: No lower extremity edema. No joint swelling. Neuro/psych: Oriented X 3. No motor deficit. No sensory deficit. CN II-XII intact. Normal speech and cognition. Medications Administered Discontinued Medications Generic Name Dose Route Start Last Admin Trade Name Deionq PRN Reason Stop Dose Admin Acetaminophen 975 mg 10/16/22 08:32 10/16/22 08:46 Acetaminophen 325 Mg Tablet PO 10/16/22 08:33 975 mg ONCE ONE Administration Medical Decision Making Medical Decision Making [facility] Narrative: 57 yo female with history of untreated HTN presenting to the ER with vague headache and lightheadedness that started this morning. VS reveal bradycardia and HTN. Exam is normal. Not currently lightheaded or dizzy, neurologically intact. EKG w/ sinus bradycardia. Orthostatic VS are negative. Labs are unremarkable. Viral studies negative. She is feeling ok. Ambulating to the bathroom well. No symptoms At this time comfortable w/ discharge home [facility] plan for outpatient f/u with her PCP for BP monitoring. we discussed monitoring BP at home as well as lifestyle modifications Differential Diagnosis Differential Diagnoses: The differential diagnosis associated with the presentation includes migraine headache, headache 2/2 HTN, viral syndrome, dehydration, tension headache. doubt SAH Admission/Observation Consideration of admission/observation: Escalation of care including admission/observation considered 57 yo presenting with headache, lightheadedness, found to be hypertensive and bradycardic Lab Data [facility] Lab Attestation statement: I reviewed the patient's lab results. no anemia, no significant metabolic derrangement, trop negative 10/16/22 08:57 10/16/22 08:57 Labs: Lab Results 10/16/22 10/16/22 10/16/22 Range/Units 08:57 08:57 08:57 WBC 8.3 (4.8-10.8) X10*3/uL RBC 3.93 L (4.20-5.50) X10*6/uL Hgb 12.3 (12.0-16.0) g/dl Hct 37.4 (37.0-47.0) % MCV 95.2 (80.0-98.0) fL MCH 31.3 (27.0-33.0) pg MCHC 32.9 (31.0-35.0) g/dl RDW 15.3 (11.0-16.0) % Plt Count 164 (160-400) X10*3/uL MPV 12.5 H (9.4-12.3) fL Immature Gran % (Auto) 0.2 (0.0-0.4) % Neut % (Auto) 59.7 (45-73) % Lymph % (Auto) 29.2 (20-40) % [place] % (Auto) 7.2 (2-11) % Eos % (Auto) 2.7 (0-4) % Baso % (Auto) 1.0 (0-2) % Lymph # (Auto) 2.4 (1.2-4.9) X10*3/uL [place] # (Auto) 0.6 (0.1-1.2) X10*3/uL Eos # (Auto) 0.2 (0.0-0.4) X10*3/uL Baso # (Auto) 0.1 (0.0-0.2) X10*3/uL Abs Immat Gran (auto) 0.02 (0.00-0.03) X10*3/uL Absolute Neuts (auto) 4.9 (2.0-8.3) x10*3/uL Absolute Nucleated RBC 0.000 (0.0-0.012) X10*3/uL Nucleated RBC % (auto) 0.0 (0.0-0.2) /100WBC Sodium 139 (135-145) mmol/L Potassium 4.0 (3.3-5.1) mmol/L Chloride 109 H (96-108) mmol/L Carbon Dioxide 23 (22-29) mmol/L Anion Gap 11 L (12-20) BUN 14 (9-16) mg/dL Creatinine 0.78 (0.5-1.4) mg/dL Estim Creat Clear Calc 93.1 Estimated GFR > 60 Random Glucose 93 (60-115) mg/dL Calcium 8.6 (8.4-10.2) mg/dL Magnesium 2.0 (1.6-2.6) mg/dL Total Bilirubin 0.3 (0.0-1.0) mg/dL Direct Bilirubin 0.1 (0.0-0.5) mg/dL AST 15 (5-31) U/L ALT 12 (0-31) U/L Alkaline Phosphatase 48 (39-117) U/L Troponin I High Sens (<3.5-17.0) ng/L Total Protein 6.2 L (6.5-8.0) g/dL Albumin 3.9 (3.5-5.0) g/dL COVID-19 (RYAN) Negative (Negative) COVID-19 Clin Com See Note Influenza Type A (WAI) (Negative) Influenza Type B (WAI) (Negative) Influenza A & B Note 10/16/22 10/16/22 Range/Units 08:57 08:57 WBC (4.8-10.8) X10*3/uL RBC (4.20-5.50) X10*6/uL Hgb (12.0-16.0) g/dl Hct (37.0-47.0) % MCV (80.0-98.0) fL MCH (27.0-33.0) pg MCHC (31.0-35.0) g/dl RDW (11.0-16.0) % Plt Count (160-400) X10*3/uL MPV (9.4-12.3) fL Immature Gran % (Auto) (0.0-0.4) % Neut % (Auto) (45-73) % Lymph % (Auto) (20-40) % [place] % (Auto) (2-11) % Eos % (Auto) (0-4) % Baso % (Auto) (0-2) % Lymph # (Auto) (1.2-4.9) X10*3/uL [place] # (Auto) (0.1-1.2) X10*3/uL Eos # (Auto) (0.0-0.4) X10*3/uL Baso # (Auto) (0.0-0.2) X10*3/uL Abs Immat Gran (auto) (0.00-0.03) X10*3/uL Absolute Neuts (auto) (2.0-8.3) x10*3/uL Absolute Nucleated RBC (0.0-0.012) X10*3/uL Nucleated RBC % (auto) (0.0-0.2) /100WBC Sodium (135-145) mmol/L Potassium (3.3-5.1) mmol/L Chloride (96-108) mmol/L Carbon Dioxide (22-29) mmol/L Anion Gap (12-20) BUN (9-16) mg/dL Creatinine (0.5-1.4) mg/dL Estim Creat Clear Calc Estimated GFR Random Glucose (60-115) mg/dL Calcium (8.4-10.2) mg/dL Magnesium (1.6-2.6) mg/dL Total Bilirubin (0.0-1.0) mg/dL Direct Bilirubin (0.0-0.5) mg/dL AST (5-31) U/L ALT (0-31) U/L Alkaline Phosphatase (39-117) U/L Troponin I High Sens < 2.7 (<3.5-17.0) ng/L Total Protein (6.5-8.0) g/dL Albumin (3.5-5.0) g/dL COVID-19 (RYAN) (Negative) COVID-19 Clin Com Influenza Type A (WAI) Negative (Negative) Influenza Type B (WAI) Negative (Negative) Influenza A & B Note See Note Independent Interpretation I performed an independent interpretation of an: EKG Interpretation: ekg w/ sinus bradycardia, HR 46, normal MS interval, no ST segment elevations or depressions, isolated twi in lead V1 only External Record Review External record reviewed: Outpatient record and Prior outpatient labs Tests considered The following testing was considered but not selected: CT head considered Prescription Management I considered prescription management with: Pain Medication Chronic Conditions Patient?s care impacted by: Hypertension Discharge Plan Discharge Clinical Impression: Headache, Hypertension, Sinus bradycardia Patient Disposition: Home, Self-Care Instructions: Bradycardia (ED), Hypertension (ED), General Headache (ED) Additional Instructions: Your workup today was unremarkable. EKG showed a slower heart rate but no signs of any concerning conduction issues Your blood pressure was elevated - recommend starting the previously prescribed BP medication and monitor your BP at home Work on decreasing your salt intake and increasing exercise Follow up with your doctor for further management If you develop new or worsening symptoms call 911 or come back to the ER for further evaluation. Prescriptions: No Action No Known Home Meds Stand Alone Forms: Work/School Release
[2022-10-16] MEDS: Acetaminophen 325 MG TABLET 975 MG PO (08:46)
[2022-10-16 09:01] VITALS: BP 144/84; PULSE 46
[2022-10-16 09:02] VITALS: BP 147/91; PULSE 60
[2022-10-16 09:03] VITALS: BP 152/59; PULSE 57
[2022-10-16 09:06] LABS: Basophils Absolute Auto 0.1 X10*3/uL (0.0-0.2); Eosinophils Absolute Auto 0.2 X10*3/uL (0.0-0.4); Eosinophils Percent Auto 2.7 % (0-4); Hematocrit 37.4 % (37.0-47.0); Hemoglobin 12.3 g/dl (12.0-16.0); Imm Gran Abs Auto 0.02 X10*3/uL (0.00-0.03); Imm Gran Pct Auto 0.2 % (0.0-0.4); Lymphocytes Absolute Auto 2.4 X10*3/uL (1.2-4.9); Lymphocytes Percent Auto 29.2 % (20-40); MANUAL DIFF FLAG NO; Mean Corpuscular HGB Conc 32.9 g/dl (31.0-35.0); Mean Corpuscular Hemoglobin 31.3 pg (27.0-33.0); Mean Corpuscular Volume 95.2 fL (80.0-98.0); Mean Platelet Volume 12.5 fL (9.4-12.3); Monocytes Absolute Auto 0.6 X10*3/uL (0.1-1.2); Monocytes Percent Auto 7.2 % (2-11); Neutrophils Absolute Auto 4.9 x10*3/uL (2.0-8.3); Neutrophils Percent Auto 59.7 % (45-73); Platelet Count 164 X10*3/uL (160-400); Red Blood Count 3.93 X10*6/uL (4.20-5.50); Red Cell Distribution Width 15.3 % (11.0-16.0); White Blood Count 8.3 X10*3/uL (4.8-10.8)
[2022-10-16 09:20] LABS: Alanine Aminotransferase 12 U/L (0-31); Albumin Level 3.9 g/dL (3.5-5.0); Alkaline Phosphatase 48 U/L (39-117); Anion Gap 11 (12-20); Aspartate Amino Transferase 15 U/L (5-31); Bilirubin Direct 0.1 mg/dL (0.0-0.5); Bilirubin Total 0.3 mg/dL (0.0-1.0); Blood Urea Nitrogen 14 mg/dL (9-16); Calcium 8.6 mg/dL (8.4-10.2); Carbon Dioxide 23 mmol/L (22-29); Chloride 109 mmol/L (96-108); Creatinine Clr Calc Pharmacy 93.1; Estimated Glomerular Filt Rate > 60; Glucose Random 93 mg/dL (60-115); Sodium 139 mmol/L (135-145); Total Protein 6.2 g/dL (6.5-8.0)
[2022-10-16 09:31] LABS: Troponin-I High Sensitivity < 2.7 ng/L (<3.5-17.0)
[2022-10-16 09:34] LABS: COVID-19 Test Negative (Negative); IDNOW Serial# 08D9AD1C; IDNOW Serial# BCCEAD1C; Influenza A Negative (Negative); Influenza B2 Negative (Negative)
--- NOTE | 2022-10-16 10:00 | PC.NURSE ---
no changes to neuros from previous assessment by this RN. no complaints at this time; call vang within reach.
[2022-10-16 10:26] VITALS: BP 154/89; PULSE 60
== END 2022-10-16 10:26 | disposition home or self-care (01) ==
PROVIDERS: Physician Assistant; Emergency Provider Emergency Medicine
DX: R51.9 Headache, unspecified (principal); I10 Essential (primary) hypertension; R00.1 Bradycardia, unspecified; Z20.822 Contact with and (suspected) exposure to COVID-19; F17.210 Nicotine dependence, cigarettes, uncomplicated; F12.90 Cannabis use, unspecified, uncomplicated
CPT/HCPCS: 80048; 80076; 83735; 84484; 85025; 87502; 87635; 93005; 99284; 99285

== ENCOUNTER 2024-07-27 10:32 | Emergency (ER) | payer SELFPAY ==
--- NOTE | ~2024-07-27 | US_ITS ---
EXAMINATION: US TRIPLEX LOWER EXTREMITY, LEFT CLINICAL INFORMATION: Left leg pain and edema. COMPARISON: None available. TECHNIQUE: Color-flow triplex imaging with spectral analysis and compression Doppler were performed on the left lower extremity. FINDINGS: Respiratory variation, normal compression and augmented flow are noted throughout the left lower extremity. The visualized common femoral vein, superficial femoral vein, profunda femoral vein, popliteal vein and midcalf peroneal and posterior tibial venous segments show no evidence of deep venous thrombosis. There is no Tanner's cyst. US/US venous duplex LE LT IMPRESSION: No evidence of deep venous thrombosis involving the left lower extremity. Electronically signed by: Dick Bustillos MD 07/27/2024 12:05 PM EDT
--- NOTE | 2024-07-27 10:59 | ED_ITS ---
HPI - Extremity Problem General Chief complaint: Extremity Injury, Lower Stated complaint: legs swollen, diff walking Time Seen by Provider: 07/27/24 14:14 Source: patient Mode of arrival: ambulatory Limitations: no limitations History of Present Illness ED Provider: Brian Nguyen HPI Narrative: 59 Yold female presents to the ED for left lower extremity swelling and pain for the past 3 days. patient denies any recent trauma, fever, chills, calf pain, chest pain, or shortness of breath. Patient was seen yesterday at urgent care and had normal xray as per URgent care staff. Patient denies any redness, stiffness, fever, and chills. Related Data Previous Rx's ?Medication ?Instructions ?Recorded naproxen 500 mg tablet 500 mg PO BID PRN pain #14 tabs 07/27/24 prednisone 20 mg tablet 40 mg (2 x 20 mg) PO DAILY 5 days 07/27/24 #10 tabs Allergies Allergy/AdvReac Type Severity Reaction Status Date / Time No Known Allergies Allergy Verified 07/27/24 11:01 Review of Systems 2 Review of Systems: Left lower extremity swelling Yes all other systems are reviewed and are negative [facility] Social History Social History Alcohol intake: current Alcohol intake frequency: 3 or more drinks per day Alcohol type: beer Patient Tobacco Use Status: Current everyday Tobacco user Cigarette Packs Per Day: 1 Substance Use Type: Marijuana Advance Directives: No Advance Directives Information Provided: No Do you have a plan to hurt others: No Plan Physical Exam 2 Vital Signs: Vital Signs: Last Vital Signs Temp 98.0 F 07/27/24 14:37 Pulse 72 07/27/24 14:37 Resp 16 07/27/24 14:37 BP 144/76 H 07/27/24 14:37 Pulse Ox 99 07/27/24 14:37 O2 Del Method Room Air 07/27/24 14:37 BMI result Body Mass Index 27.2 Const: General: cooperative, healthy appearing, comfortable, no acute distress, well developed, alert, awake and Physically active O rientation/consciousness: patient oriented x3 HEENT: Head: Yes normal to inspection, Yes No palpable skull fracture present, Yes normocephalic and Yes atraumatic Eyes: General: appearance normal, both eyes and all related structures Neck: Neck: Yes normal visual inspection, Yes full ROM, Yes no lymphadenopathy, Yes no meningeal signs, Yes trachea midline, Yes supple, No anterior neck swelling and No tender Chest: Chest palpation & inspection: normal inspection of the chest and normal palpation of entire chest wall Resp: Effort & Inspection: normal respiratory effort and able to speak in complete sentences Auscultation: clear to auscultation bilaterally Cardio: Jugular venous distension: no JVD Heart sounds: S1 normal heart sound present and S2 normal heart sound present GI: Inspection: Yes normal to inspection Palpation (GI): Soft to palpation, not firm, nontender, no guarding and not rigid : General: Yes no CVA tenderness Back/Spine/Pelvis: Back: no CVA tenderness and No back tenderness Skin: General skin exam: no rashes or lesions noted, elasticity normal and turgor normal Neuro: General: patient oriented x3, gait normal, tone normal, moves all extremities, Normal light touch and pain sensation, no meningeal signs, no focal motor deficits and CN's II-XI intact bilaterally Extrem: Other: LLE: positive left knee, thigh leg, calf, and foot swelling. negative knee stiffness, redness, or warmth. Negative for calf tenderness on palpation. negative for ecchymosis, crepitus, or deformities. Vascular, motor, and neuro exam is intact. Right lower extremity is normal. General: Yes normal to inspection and Yes full ROM Psych: Appearance: grossly normal, well kempt and not disheveled Course Course Course Narrative: 59 yo female with PMH of back pain, ETOH use disorder, gallstones here with c/o waking up Thursday and feeling tingles to L lateral thigh now with pain and swelling. She cannot walk on it. She has no CP/SOB, no fevers, no rash, no tick bites. She has never had a blood clot before. At this time basic labs, DVT study. this is a RAPID medical screening exam the rest of the history and physical exam is to be done by the main provider. SOPHIA 07/27/24 11am. Medical Decision Making Medical Decision Making [facility] Narrative: 59 yold female presents to the ED for left lower extremity since Thursday. Patient denies any chest pain or shortness of breath. Patient states left knee, thigh, and left leg swelling. Patient was seen yesterday at urgent care had a x-ray that was normal as per urgent care provider.. Physical exam positive for left thigh knee and leg swelling. Ultrasound negative for DVT. Physical exam negative for any left knee redness or stiffness. Patient informed to follow up with primary care provider and vascular surgeon. Patient informed if symptoms worsened fever chills knee stiffness she is to return to the ED immediately. Patient also explained of the worrisome signs. Not suspecting gout, septic joint, arterial occlusion, compartment syndrome, or any other life threatening etiology.. Patient denies any recent trauma. Dr. Elizondo evaluated patient and recomend Crutches, and justina wrap. Patient given justina wrap and crutches. Differential Diagnosis Differential Diagnoses: The differential diagnosis associated with the presentation includes (Leg swelling) Admission/Observation Consideration of admission/observation: Escalation of care including admission/observation considered Lab Data MDM Lab Attestation statement: I reviewed the patient's lab results. 07/27/24 11:42 07/27/24 11:42 Labs: Lab Results 07/27/24 Range/Units 11:42 WBC 13.8 H (4.8-10.8) X10*3/uL RBC 4.20 (4.20-5.50) X10*6/uL Hgb 13.4 (12.0-16.0) g/dl Hct 39.3 (37.0-47.0) % MCV 93.6 (80.0-98.0) fL MCH 31.9 (27.0-33.0) pg MCHC 34.1 (31.0-35.0) g/dl RDW 14.7 (11.0-16.0) % Plt Count 195 (160-400) X10*3/uL MPV 12.0 (9.4-12.3) fL Immature Gran % (Auto) 0.5 H (0.0-0.4) % Neut % (Auto) 76.4 H (45-73) % Lymph % (Auto) 13.5 L (20-40) % [place] % (Auto) 8.7 (2-11) % Eos % (Auto) 0.5 (0-4) % Baso % (Auto) 0.4 (0-2) % Lymph # (Auto) 1.9 (1.2-4.9) X10*3/uL [place] # (Auto) 1.2 (0.1-1.2) X10*3/uL Eos # (Auto) 0.1 (0.0-0.4) X10*3/uL Baso # (Auto) 0.1 (0.0-0.2) X10*3/uL Abs Immat Gran (auto) 0.07 H (0.00-0.03) X10*3/uL Absolute Neuts (auto) 10.6 H (2.0-8.3) x10*3/uL Absolute Nucleated RBC 0.000 (0.0-0.012) X10*3/uL Nucleated RBC % (auto) 0.0 (0.0-0.2) /100WBC Sodium 137 (135-145) mmol/L Potassium 3.5 (3.3-5.1) mmol/L Chloride 107 (96-108) mmol/L Carbon Dioxide 23 (22-29) mmol/L Anion Gap 11 L (12-20) BUN 11 (9-16) mg/dL Creatinine 0.72 (0.5-1.4) mg/dL Estim Creat Clear Calc 94.0 Estimated GFR > 60 Random Glucose 102 (60-115) mg/dL Calcium 9.3 D (8.4-10.2) mg/dL Independent Interpretation I performed an independent interpretation of an: Ultrasound Independent Historian Clinical information obtained from an independent historian. History obtained from or confirmed by: Other (pATIENT) Prescription Management I considered prescription management with: Pain Medication Discharge Plan Discharge Clinical Impression: Leg edema, left, Effusion of left knee Patient Disposition: Home, Self-Care Instructions: Leg Edema (ED), Swollen Knee Joint (ED) Additional Instructions: RECOMMEND FOLLOW-UP WITH YOUR PRIMARY CARE PROVIDER AND ALSO VASCULAR SURGEON. RETURN TO THE ED IMMEDIATELY FOR WORSENING SWELLING, REDNESS, KNEE STIFFNESS, KNEE PAIN, KNEE REDNESS, CHEST PAIN, SHORTNESS OF BREATH, WORSENING CALF PAIN, BLUISH BLACK DISCOLORATION, OR ANY OTHER CONCERNING SYMPTOMS. RECOMMEND ELEVATION OF LEFT LOWER EXTREMITY AND ALSO USE OF COMPRESSION STOCKINGS. You were also given justina wrap and knee brace. EXAMINATION: US TRIPLEX LOWER EXTREMITY, LEFT CLINICAL INFORMATION: Left leg pain and edema. COMPARISON: None available. TECHNIQUE: Color-flow triplex imaging with spectral analysis and compression Doppler were performed on the left lower extremity. FINDINGS: Respiratory variation, normal compression and augmented flow are noted throughout the left lower extremity. The visualized common femoral vein, superficial femoral vein, profunda femoral vein, popliteal vein and midcalf peroneal and posterior tibial venous segments show no evidence of deep venous thrombosis. There is no Tanner's cyst. US/US venous duplex LE LT IMPRESSION: No evidence of deep venous thrombosis involving the left lower extremity. Electronically signed by: Dick Bustillos MD 07/27/2024 12:05 PM EDT Prescriptions: New naproxen 500 mg tablet 500 mg PO BID PRN (Reason: pain) Qty: 14 0RF prednisone 20 mg tablet 40 mg PO DAILY 5 Days Qty: 10 0RF Referrals: [facility] [Provider Group] (LEFT KNEE SWELLING. EFFUSSION) Lars Patel MD [Physician] - (LEFT LEG EDEMA. VENOUS STASIS?) Stand Alone Forms: Work/School Release Interventions: ED Discharge Assessment Last Done: 07/27/24 14:37 Discharge Date/Time: 07/27/24 14:40 Print Language: Czech
[2024-07-27 11:00] VITALS: BP 143/89; PULSE 78; RESP 16; TEMP 36.6; O2SAT 99; BMI 27.2
[2024-07-27 11:47] LABS: MANUAL DIFF FLAG NO
[2024-07-27 11:49] LABS: Basophils Absolute Auto 0.1 X10*3/uL (0.0-0.2); Basophils Percent Auto 0.4 % (0-2); Eosinophils Absolute Auto 0.1 X10*3/uL (0.0-0.4); Eosinophils Percent Auto 0.5 % (0-4); Hematocrit 39.3 % (37.0-47.0); Hemoglobin 13.4 g/dl (12.0-16.0); Imm Gran Abs Auto 0.07 X10*3/uL (0.00-0.03); Imm Gran Pct Auto 0.5 % (0.0-0.4); Lymphocytes Absolute Auto 1.9 X10*3/uL (1.2-4.9); Lymphocytes Percent Auto 13.5 % (20-40); Mean Corpuscular HGB Conc 34.1 g/dl (31.0-35.0); Mean Corpuscular Hemoglobin 31.9 pg (27.0-33.0); Mean Corpuscular Volume 93.6 fL (80.0-98.0); Monocytes Absolute Auto 1.2 X10*3/uL (0.1-1.2); Monocytes Percent Auto 8.7 % (2-11); Neutrophils Absolute Auto 10.6 x10*3/uL (2.0-8.3); Neutrophils Percent Auto 76.4 % (45-73); Platelet Count 195 X10*3/uL (160-400); Red Cell Distribution Width 14.7 % (11.0-16.0); White Blood Count 13.8 X10*3/uL (4.8-10.8)
[2024-07-27 12:00] LABS: Anion Gap 11 (12-20); Blood Urea Nitrogen 11 mg/dL (9-16); Calcium 9.3 mg/dL (8.4-10.2); Carbon Dioxide 23 mmol/L (22-29); Chloride 107 mmol/L (96-108); Estimated Glomerular Filt Rate > 60; Glucose Random 102 mg/dL (60-115); Potassium 3.5 mmol/L (3.3-5.1); Sodium 137 mmol/L (135-145)
[2024-07-27 14:37] VITALS: BP 144/76; PULSE 72; RESP 16; TEMP 36.7; O2SAT 99
--- OUTSIDE RECORDS SUMMARY | 2024-07-27 16:15 | XMS_ITS | Clinical Summary ---
Author Organization [facility] Address [address] [place] [address] Care Team Providers Care Submersible Pilot Name Role Phone Clarissa Ruby NP Primary Care Provider Social History Tobacco Use Types Packs/Day Years Used Date Smoking Tobacco: Never Assessed Comments Unknown Sex and Gender Information Value Date Recorded Sex Assigned at Not on file Legal Sex Female 8:34 PM EST Gender Identity Not on file Sexual Orientation Not on file Last Filed Vital Signs Vital Sign Reading Time Taken Comments Blood Pressure - - Pulse - - Temperature - - Respiratory Rate - - Oxygen Saturation - - Inhaled Oxygen Concentration - - Weight 81.6 kg (180 lb) 08/06/2023 8:56 AM EDT Height 175.3 cm (5' 9 ) 08/06/2023 8:56 AM EDT Body Mass Index 26.58 08/06/2023 8:56 AM EDT Plan of Treatment Health Maintenance Due Date Last Done Comments Breast Cancer Screening 1965 COVID-19 Vaccine (#1) 1970 DTaP,Tdap,and Td Vaccines (1 - Tdap) 1984 Hepatitis B Vaccines (1 of 3 - 19+ 3-dose series) 1984 Pneumococcal Vaccine: 50+ Ye ars (1 of 2 - PCV) 1984 Pneumococcal Vaccine: Pediat rics (0 to 5 Years) and At-Risk Patients (6 to 64 Years) (1 of 2 - PCV) 1984 Zoster Vaccines (1 of 2) 1984 Cervical Cancer Screening: P ap Smear 1986 Colorectal Cancer Screening: Colonoscopy 03/13/2023 Depression Screening 03/13/2023 HIV Screening 03/13/2023 Hepatitis C Screening 03/13/2023 Social Influencers of Health Screening 03/13/2023 Influenza Vaccine (Season Ended) 2024 RSV Immunization Adult Patie nts (1 - 1-dose 75+ series) 2040 HIB Vaccines Aged Out No longer eligi ble based on patient's age to complete this topic HPV Vaccines Aged Out No longer eligi ble based on patient's age to complete this topic Hepatitis A Vaccines Aged Out No long er eligible based on patient's age to complete this topic IPV Vaccines Aged Out No longer eligi ble based on patient's age to complete this topic MMR Vaccines Aged Out No longer eligi ble based on patient's age to complete this topic Meningococcal ACWY Vaccine Aged Out N o longer eligible based on patient's age to complete this topic Meningococcal B Vaccine Aged Out No l onger eligible based on patient's age to complete this topic RSV Immunization Patients Un tanner 20 months Aged Out No longer eligible b ased on patient's age to complete this topic Varicella Vaccines Aged Out No longer eligible based on patient's age to complete this topic Care Teams Submersible Pilot Relationship Specialty Start Date End Date Clarissa Ruby NP [address] [place] [address] PCP - General 04/03/22
== END 2024-07-27 14:40 | disposition home or self-care (01) ==
PROVIDERS: Emergency Provider Emergency Medicine
DX: R60.0 Localized edema (principal); M25.462 Effusion, left knee; M25.562 Pain in left knee
CPT/HCPCS: 36415; 80048; 85025; 93971; 99282; 99284

== ENCOUNTER → 2024-07-27 11:01 | Outpatient (BNV) | payer OTHER, SELFPAY | PROVIDERS: Visit Provider Radiology Diagnostic Radiology | DX: M79.605 Pain in left leg (principal); R60.9 Edema, unspecified | CPT/HCPCS: 93971 ==